=== PATIENT | male | born 1990 | race Caucasian/White ===

== ENCOUNTER 2017-06-12 16:37 | Emergency (ER) | payer MEDICAID, OTHER ==
[~2017-06-12] VITALS: Wt 81.8 kg
[2017-06-12] MEDS ORDERED: HYDROCODONE/APAP (10/325) TAB PO ONE (19:00)
[2017-06-12] MEDS ORDERED: LIDOCAINE 1% (MDV) 20 ML INJ SC ONE (19:00)
--- NOTE | 2017-06-12 19:06 | ERD ---
ER Documentation Chief Complaint Date/Time DATE: 06/12/17 TIME: 19:02 Chief Complaint abscess? to l buttock HPI 27-year-old male presents to emergency department for complaints of pain and swelling in the left buttock area that started 3 days ago. Patient describes the pain as throbbing pain, 8/10 scale, is worse upon touching the area. Patient states it is also worse when walking. Patient denies any fever or chills. Patient denies any discharge coming from the area. Patient did not take any medications to help with symptoms. ROS All systems reviewed and are negative except as per history of present illness. Medications Home Meds Active Scripts Hydrocodone/Acetaminophen ([place] 5-325 Tablet) 1 Each Tablet, 1 TAB PO Q6H Y for SEVERE PAIN LEVEL 7-10, #20 TAB Prov:SEPIDEH GAGE NP 06/12/17 Ibuprofen* (Motrin*) 600 Mg Tab, 600 MG PO Q6H Y for PAIN AND OR ELEVATED TEMP, #30 TAB Prov:SEPIDEH GAGE NP 06/12/17 Cephalexin* (Keflex*) 500 Mg Capsule, 500 MG PO QID for 10 Days, CAP Prov:SEPIDEH GAGE NP 06/12/17 Sulfamethoxazole/Trimethoprim* (Bactrim Ds* Tablet) 1 Each Tablet, 1 TAB PO BID , #20 TAB Prov:SEPIDEH GAGE NP 06/12/17 Reported Medications [none] Unknown Strength No Conflict Check 06/12/17 Allergies Allergies: Coded Allergies: No Known Allergy (Unverified , 06/12/17) PMhx/Soc Medical and Surgical Hx: pt denies Medical Hx, pt denies Surgical Hx Hx Alcohol Use: No Hx Substance Use: No Hx Tobacco Use: No Smoking Status: Never smoker FmHx Family History: No coronary disease, No diabetes, No other Physical Exam Vitals Vital Signs Date Time Temp Pulse Resp B/P Pulse Ox O2 Delivery O2 Flow Rate FiO2 06/12/17 16:56 98.1 88 20 135/89 98 Physical Exam GENERAL: The patient is well developed and appropriate for usual state of health, in no apparent distress. CHEST: Clear to auscultation bilaterally. There are no rales, wheezes or rhonchi. HEART: Regular rate and rhythm. No murmurs, clicks, rubs or gallops. No S3 or S4. ABDOMEN: Soft, nontender and nondistended. Good bowel sounds. No rebound or guarding. No gross peritonitis. No gross organomegaly or masses. No Sheppard sign or McBurney point tenderness. BACK: No midline or flank tenderness. EXTREMITIES: Equal pulses bilaterally. There is no peripheral clubbing, cyanosis or edema. No focal swelling or erythema. Full range of motion. Grossly neurovascularly intact. NEURO: Alert and oriented. Cranial nerves 2-12 intact. Motor strength in all 4 extremities with 5/5 strength. Sensation grossly intact. Normal speech and gait. SKIN: 3 cm diameter erythematous indurated , fluctuant area noted in the left buttock. Tender on palpation.There is no apparent ecchymoses or petechia. The skin is warm and dry. HEMATOLOGIC AND LYMPHATIC: There is no evidence of excessive bruising or lymphedema. No gross cervical, axillary, or inguinal lymphadenopathy. Results 24 hrs Current Medications Medications (Trade) Dose Ordered Sig/Lobo Route PRN Reason Start Time Stop Time Status Last Admin Dose Admin Lidocaine (Xylocaine 1% (Mdv) 20 ml) 5 ml ONCE ONCE SC 06/12/17 19:00 06/12/17 19:01 DC Acetaminophen/ Hydrocodone Bitart ([place] (10/325)) 1 tab ONCE ONCE PO 06/12/17 19:00 06/12/17 19:01 DC 06/12/17 18:58 Patient was given medication for pain here in emergency department, after treatment, patient verbalized feeling much better. Patient's pain is improved. Procedures/MDM Procedure Note: After obtaining informed consent, the wound was irrigated with 250 ml of normal saline and cleaned with diluted betadine. Using aseptic technique, 3 ml of 1% lidocaine was injected on the subcutaneous tissue of the abscess where the fluctuant area is at. After the anesthetic, a 2 cm incision was done in the middle of the fluctuant area of the abscess. Pustular discharge was drained from the abscess. The abscess wound was loosely packed with iodoform dressing. After the procedure, dry dressing was applied on the area. Patient tolerated procedure well. Medical decision making: Patient symptoms is likely is consistent with a soft tissue abscess in the buttock area, it was drained without any difficulty. Patient tolerated procedure well. No symptoms of any abscess, and symptoms of any anal fistula, no symptoms of any hemorrhoids, no symptoms of any pilonidal cyst at this time. No symptoms of abscess, patient presents hemodynamically stable. Patient was given for Keflex, Bactrim, [place], ibuprofen, is advised to return in 2 days for reevaluation and symptoms, do hot sitz bath at home, patient was advised to return to emergency department sooner for any worsening symptoms. Disposition: Home. Stable. Departure Diagnosis: Primary Impression: Soft tissue abscess Condition: Stable Patient Instructions: Abscess, Incision And Drainage Additional Instructions: recheck dressing change in 2 days SEPIDEH GAGE NP Jun 12, 2017 19:06
[2017-06-12] MEDS ORDERED: CEPH-443 PO (19:07)
[2017-06-12] MEDS ORDERED: HYDR-906 PO (19:07)
[2017-06-12] MEDS ORDERED: SULF1TAB31 PO (19:07)
[2017-06-12] MEDS ORDERED: IBUP-1542 PO (19:07)
== END 2017-06-12 19:45 | disposition home or self-care (01) ==
LOC: FTE 16:37
DX: L02.31 Cutaneous abscess of buttock (principal)
CPT/HCPCS: 10061; Z7502; Z7610

== ENCOUNTER 2017-06-14 17:02 | Emergency (ER) | payer MEDICAID ==
[~2017-06-14] VITALS: Ht 165.1 cm; Wt 75.5 kg
[~2017-06-14 17:02] MED LIST: CEPH-443 PO; HYDR-906 PO; IBUP-1542 PO; SULF1TAB31 PO
[2017-06-14 17:05] VITALS: Ht 165.1 cm; Wt 75.5 kg
--- NOTE | 2017-06-14 19:26 | ERD ---
ER Documentation Chief Complaint Date/Time DATE: 06/14/17 TIME: 19:25 Chief Complaint Patient here for a recheck abscess I&D HPI This 19-year-old male presents for recheck on left buttock abscess I&D performed 2 days ago. He is taking antibiotics. He feels decrease in pain no fevers or vomiting. ROS All systems reviewed and are negative except as per history of present illness. Medications Home Meds Active Scripts Hydrocodone/Acetaminophen ([place] 5-325 Tablet) 1 Each Tablet, 1 TAB PO Q6H Y for SEVERE PAIN LEVEL 7-10, #20 TAB Prov:SEPIDEH GAGE NP 06/12/17 Ibuprofen* (Motrin*) 600 Mg Tab, 600 MG PO Q6H Y for PAIN AND OR ELEVATED TEMP, #30 TAB Prov:SEPIDEH GAGE NP 06/12/17 Cephalexin* (Keflex*) 500 Mg Capsule, 500 MG PO QID for 10 Days, CAP Prov:SEPIDEH GAGE [employer] 06/12/17 Sulfamethoxazole/Trimethoprim* (Bactrim Ds* Tablet) 1 Each Tablet, 1 TAB PO BID , #20 TAB Prov:SEPIDEH GAGE [employer] 06/12/17 Reported Medications [none] Unknown Strength No Conflict Check 06/12/17 Allergies Allergies: Coded Allergies: No Known Allergy (Unverified , 06/12/17) PMhx/Soc Medical and Surgical Hx: pt denies Medical Hx, pt denies Surgical Hx History of Surgery: No Anesthesia Reaction: No Hx Neurological Disorder: No Hx Respiratory Disorders: No Hx Cardiac Disorders: No Hx Psychiatric Problems: No Hx Miscellaneous Medical Probl: No Hx Alcohol Use: No Hx Substance Use: No Hx Tobacco Use: No Smoking Status: Never smoker Physical Exam Vitals Vital Signs Date Time Temp Pulse Resp B/P Pulse Ox O2 Delivery O2 Flow Rate FiO2 06/14/17 17:05 98.0 80 20 121/72 94 Physical Exam Const: []Alert, not ill-appearing. Head: Atraumatic Eyes: Normal Conjunctiva ENT: Normal External Ears, Nose and Mouth. Neck: Full range of motion..~ No meningismus. Resp: Clear to auscultation bilaterally Cardio: Regular rate and rhythm, no murmurs Abd: Soft, non tender, non distended. Normal bowel sounds Skin: No petechiae or rashes. There is a healing abscess in the left buttock. Gauze was removed. There is some slight surrounding induration but no significant erythema fluctuance or discharge. Back: No midline or flank tenderness Ext: No cyanosis, or edema Neur: Awake and alert Psych: Normal Mood and Affect Procedures/MDM Patient presents with a satisfactorily healing left buttock abscess without evidence of recurrent abscess, cellulitis, sepsis. We discharged home instructions to continue antibiotics and return precautions for increased redness, swelling, fevers otherwise wound care at home and follow-up as advised. Departure Diagnosis: Primary Impression: Abscess Condition: Stable Patient Instructions: Abscess, Incision And Drainage Additional Instructions: Recheck for increase in swelling, redness, fevers. Continue antibiotics. JIMMY DESAI MD Jun 14, 2017 19:26
[2017-06-14 19:38] VITALS: PULSE 78; RESP 20; TEMP 98.7
== END 2017-06-14 19:35 | disposition home or self-care (01) ==
LOC: FTE 17:02
DX: L02.31 Cutaneous abscess of buttock (principal)
CPT/HCPCS: 99281